=== PATIENT | male | born 1955 | race Hispanic/Latino ===

== ENCOUNTER 2017-09-03 09:53 | Emergency (ER) | payer BC ==
--- OUTSIDE RECORDS SUMMARY | 2017-09-03 09:55 | XMS REPORT | Clinical Summary ---
:1955 Author Organization [facility] Address [address] [place] [address] Care Team Providers Name Role Phone Lane Lopez DO Primary Care Provider Allergies No Known Allergies Current Medications Prescription Sig. Disp. Refills Start Date End Date Status allopurinol (ZYLOPRIM) 05/30/2015 Active 100 MG tablet atorvastatin (LIPITOR) 02/28/2005 Active 40 MG tablet glimepiride (AMARYL) 2 07/29/2005 Active MG tablet losartan (COZAAR) 25 02/29/2012 Active MG tablet metFORMIN (GLUCOPHAGE) 07/29/2005 Active 500 MG tablet meclizine (MOTION 02/28/2010 Active SICKNESS, MECLIZINE,) 25 mg tablet potassium citrate 05/30/2015 Active (UROCIT-K) 10 mEq (1,080 mg) CR tablet tamsulosin (FLOMAX) 02/28/2010 Active 0.4 mg capsule,extended release 24hr meloxicam (MOBIC) 15 Take 1 tablet 30 tablet 2 11/18/2015 11/17/2016 MG tablet (15 mg total) by mouth daily. Active Problems Problem Noted Date Shoulder pain, bilateral 11/18/2015 Glenohumeral arthritis 11/18/2015 Diabetes 02/28/2005 Vertigo 02/29/2000 Kidney stones 02/28/1999 Family History Medical History Relation Name Comments No Known Problems Brother Diabetes Father Jerson Meléndez Type 2 with insulin No Known Problems Mother No Known Problems Sister Relation Name Status Comments Brother Father Jerson Meléndez Mother Sister Social History Tobacco Use Types Packs/Day Years Used Date Former Smoker Cigarettes 1 10 02/28/1977 - 08/12/1988 Alcohol Use Drinks/Week oz/Week Comments No Sex Assigned at Date Recorded Not on file Last Filed Vital Signs Not on file Plan of Treatment Health Maintenance Due Date Last Done Comments DIABETIC FOOT EXAM 12/19/1967 DIABETIC RETINAL EYE EXAM 12/19/1967 URINE MICROALBUMIN 12/19/1967 COLON CANCER SCREENING 12/19/2007 SHINGRIX VACCINE (#1) 12/19/2007 INFLUENZA VACCINE 09/28/2017 Results Not on fileafter 09/02/2016 Insurance Payer Benefit Plan / Group Subscriber ID Type Phone Address BCBS BCBS CHOICE PPO/FEDERAL EMPL PPO xxxxxxxxxxxx PPO Home: Prem [address] [place] [phone] [place], [place] [id number]
--- OUTSIDE RECORDS SUMMARY | 2017-09-03 09:56 | XMS REPORT ---
:1955 [facility] Address [facility] [facility] [address] [place] [address] Care Team Providers Name Role Phone DELVIS MCCLAIN Unavailable Unavailable Problems This patient has no known problems. Allergies, Adverse Reactions, Alerts This patient has no known allergies or adverse reactions. Medications This patient has no known medications. Results Test Description Test Time Test Comments Text Results Atomic Results Result Comments TISSUE EXAM 2016-09-20 14:15:00 Surgical Pathology Report Case: [id number] Authorizing Provider: Delvis Mcclain MD Collected: 08/30/2016 1024 Ordering Location: [facility] Received: 08/30/2016 1219 SERVICES Pathologist: Jairon Pelletier MD Specimen: Humeral head, left shoulder BONE, LEFT SHOULDER, ARTHROPLASTY: -OSTEOARTHRITIS [id number] osteoarthritis left shoulder, subacromial impingement left shoulderLeft humeral headReceived fresh labeled "humeral head, left shoulder" is a 6.3 x 5.5 x 1.5 cm humeral head. The articular surface is irizarry-white to yellow-ellison and displays focal areas of pitting and eburnation. Also noted is osteophyte formation surrounding the periphery. No soft tissue is identified. Surface To Air Weapons Officer sections are submitted in cassettes A1-A2 for decalcification. DB/pl The sections who reduplication of the tidemark with eburnation and osteophyte formation. POCT-GLUCOSE METER 2016-09-01 07:51:00 Test Item Value Reference Range Comments POC-GLUCOSE METER (BEAKER) (test 287 mg/dL 70-110 TESTED AT [facility] [address] [facility] gmfi=6708) [facility] [address] POCT-GLUCOSE [id number] 21:22:00 Test Item Value Reference Range Comments POC-GLUCOSE METER (BEAKER) 284 mg/dL 70-110 TESTED AT [address] (test pbcf=8415) [facility] [address] POCT-GLUCOSE [id number] 18:19:00 Test Item Value Reference Range Comments POC-GLUCOSE METER (BEAKER) 281 mg/dL 70-110 TESTED AT [address] (test sivi=4463) [facility] [address] POCT-GLUCOSE [id number] 16:47:00 Test Item Value Reference Range Comments POC-GLUCOSE METER (BEAKER) 321 mg/dL 70-110 Procedure Error/TESTED AT [facility] (test fpet=2706) [address] [place] [address] POCT-GLUCOSE [id number] 11:11:00 Test Item Value Reference Range Comments POC-GLUCOSE METER (BEAKER) 282 mg/dL 70-110 TESTED AT [address] (test xkbm=1955) [facility] [address] POCT-GLUCOSE [id number] 09:55:00 Test Item Value Reference Range Comments POC-GLUCOSE METER (BEAKER) 326 mg/dL 70-110 TESTED AT [address] (test pjnj=5896) [facility] [address] POCT-GLUCOSE [id number] 08:15:00 Test Item Value Reference Range Comments POC-GLUCOSE METER (BEAKER) 309 mg/dL 70-110 Notified ERICKA BRUNO/TESTED AT [facility] (test cxtn=3079) [address] [place] [address] BASIC METABOLIC [id number] 04:57:00 Test Item Value Reference Range Comments SODIUM (BEAKER) (test 135 meq/L 136-145 godl=654) POTASSIUM (BEAKER) (test 4.1 meq/L 3.5-5.1 gnxb=706) CHLORIDE (BEAKER) (test 104 meq/L 98-107 ekmd=156) CO2 (BEAKER) (test 21 meq/L 22-29 vlhw=905) BLOOD UREA NITROGEN 8 mg/dL 7-21 (BEAKER) (test zhko=846) CREATININE (BEAKER) (test 0.74 mg/dL 0.57-1.25 kuam=036) GLUCOSE RANDOM (BEAKER) 267 mg/dL 70-105 (test zodt=969) CALCIUM (BEAKER) (test 8.8 mg/dL 8.4-10.2 bfam=149) EGFR (BEAKER) (test 109 mL/min/1.73 sq m ESTIMATED GFR IS NOT wqyy=0774) ACCURATE CREATININE CLEARANCE IN PREDICTING GLOMERULAR FILTRATION RATE. ESTIMATED GFR IS NOT APPLICABLE FOR DIALYSIS PATIENTS. HEMOGLOBIN AND [id number] 04:51:00 Test Item Value Reference Range Comments HEMOGLOBIN (BEAKER) (test iopl=910) 13.2 GM/DL 13.0-16.8 HEMATOCRIT (BEAKER) (test zarl=182) 39.8 % 40.0-50.0 POCT-GLUCOSE [id number] 21:08:00 Test Item Value Reference Range Comments POC-GLUCOSE METER (BEAKER) 297 mg/dL 70-110 TESTED AT [address] (test nwud=5102) [place] [address] POCT-GLUCOSE [id number] 18:10:00 Test Item Value Reference Range Comments POC-GLUCOSE METER (BEAKER) 268 mg/dL 70-110 TESTED AT [address] (test vxgd=9625) [place] [address] POCT-GLUCOSE [id number] 16:24:00 Test Item Value Reference Range Comments POC-GLUCOSE METER (BEAKER) 312 mg/dL 70-110 TESTED AT [address] (test xrvk=0068) [place] [address] HEMOGLOBIN AND [id number] 13:47:00 Test Item Value Reference Range Comments HEMOGLOBIN (BEAKER) (test eiev=806) 13.1 GM/DL 13.0-16.8 HEMATOCRIT (BEAKER) (test oqqb=533) 38.8 % 40.0-50.0 BASIC METABOLIC [id number] 13:44:00 Test Item Value Reference Range Comments SODIUM (BEAKER) (test 136 meq/L 136-145 itcp=527) POTASSIUM (BEAKER) (test 4.2 meq/L 3.5-5.1 aoym=422) CHLORIDE (BEAKER) (test 106 meq/L 98-107 lhlo=820) CO2 (BEAKER) (test 21 meq/L 22-29 wmoj=516) BLOOD UREA NITROGEN 11 mg/dL 7-21 (BEAKER) (test zgwl=599) CREATININE (BEAKER) (test 0.79 mg/dL 0.57-1.25 teaq=610) GLUCOSE RANDOM (BEAKER) 323 mg/dL 70-105 (test ramb=870) CALCIUM (BEAKER) (test 8.3 mg/dL 8.4-10.2 mbuq=572) EGFR (BEAKER) (test 101 mL/min/1.73 sq m ESTIMATED GFR IS NOT bszz=8182) ACCURATE CREATININE CLEARANCE IN PREDICTING GLOMERULAR FILTRATION RATE. ESTIMATED GFR IS NOT APPLICABLE FOR DIALYSIS PATIENTS. POCT-GLUCOSE [id number] 12:57:00 Test Item Value Reference Range Comments POC-GLUCOSE METER (BEAKER) 342 mg/dL 70-110 TESTED AT [facility] [address] [facility] (test emnb=8731) [place] [address] POCT-GLUCOSE [id number] 06:08:00 Test Item Value Reference Range Comments POC-GLUCOSE METER (BEAKER) 282 mg/dL 70-110 TESTED AT [address] (test rqzh=4584) [place] [address] [id number] 11:34:00 Test Item Value Reference Range Comments SODIUM (BEAKER) (test cect=803) 135 meq/L 136-145 POTASSIUM (BEAKER) (test 4.3 meq/L 3.5-5.1 Specimen slightly hemolyzed ekqf=053) CHLORIDE (BEAKER) (test 102 meq/L 98-107 cqvf=691) CO2 (BEAKER) (test zhxh=417) 24 meq/L 22-29 [id number] 11:34:00 Test Item Value Reference Range Comments GLUCOSE RANDOM (BEAKER) (test mdfw=458) 271 mg/dL 70-105 Effective 01/15/2014: Reference Range Change-Adult onlyNew: 70-105 Previous : 70-110BUN AND [id number] 11:34:00 Test Item Value Reference Range Comments BLOOD UREA NITROGEN 16 mg/dL 7-21 (BEAKER) (test nftx=831) CREATININE (BEAKER) (test 0.83 mg/dL 0.57-1.25 Specimen slightly qhkl=453) hemolyzed EGFR (BEAKER) (test 95 mL/min/1.73 sq m ESTIMATED GFR IS NOT omsh=4910) ACCURATE CREATININE CLEARANCE IN PREDICTING GLOMERULAR FILTRATION RATE. ESTIMATED GFR IS NOT APPLICABLE FOR DIALYSIS PATIENTS. [id number] 11:18:00 Test Item Value Reference Range Comments HEMOGLOBIN (BEAKER) (test ppcp=445) 14.4 GM/DL 13.0-16.8 PLATELET [id number] 11:18:00 Test Item Value Reference Range Comments PLATELET COUNT (BEAKER) (test axjp=305) 152 K/CU MM 150-430 TISSUE [id number] 09:02:00Surgical Pathology Report Case: [id number] Authorizing Provider: Delvis Mcclain MD Ordering Provider: Delvis Mclcain MD OrderingLocation: [facility] Collected: 06/01 1039 SERVICES Pathologist: Aldo Pugh MD Received: 06/01/2016 1202 Specimen: Humeralhead, right shoulder HUMORAL HEAD, RIGHT, ARTHROPLASTY: - DEGENERATIVE CHANGES CONSISTENT WITH OSTEOARTHRITIS Signing Pathologist Direct Phone Line: [phone], [phone] osteoarthritis right shoulder, right shoulder impingementRight humeral headReceived fresh labeled "humeral head , right shoulder" is a 6.5 x 5.0 x 1.5 cm humeral head. The articular surface is irizarry-white to yellow-ellison and displays focal areas of pitting and eburnation. Also noted is osteophyte formation surrounding the periphery. Surface To Air Weapons Officer sections are submitted in cassettes A1-A2 for decalcification. DB/ ewPerformed.BASIC METABOLIC [id number] 10:14:00 Test Item Value Reference Range Comments SODIUM (BEAKER) (test 135 meq/L 136-145 gtpg=883) POTASSIUM (BEAKER) (test 4.1 meq/L 3.5-5.1 qeru=048) CHLORIDE (BEAKER) (test 100 meq/L 98-107 yila=378) CO2 (BEAKER) (test 26 meq/L 22-29 qmnz=877) BLOOD UREA NITROGEN 10 mg/dL 7-21 (BEAKER) (test vmqw=320) CREATININE (BEAKER) 0.65 mg/dL 0.57-1.25 (test pxev=900) GLUCOSE RANDOM (BEAKER) 285 mg/dL 70-105 (test ohii=906) CALCIUM (BEAKER) (test 8.9 mg/dL 8.4-10.2 imky=385) EGFR (BEAKER) (test 126 mL/min/1.73 sq INSUFFICIENT CLINICAL DATA xtyx=6577) m TO CALCULATE ESTIMATED GFR. HEMOGLOBIN AND [id number] 10:02:00 Test Item Value Reference Range Comments HEMOGLOBIN (BEAKER) (test bkkq=957) 12.4 GM/DL 13.0-16.8 HEMATOCRIT (BEAKER) (test hmfa=625) 37.6 % 40.0-50.0 POCT-GLUCOSE [id number] 07:33:00 Test Item Value Reference Range Comments POC-GLUCOSE METER (BEAKER) 229 mg/dL 70-110 TESTED AT [address] (test soqp=3029) [facility] [address] POCT-GLUCOSE [id number] 21:09:00 Test Item Value Reference Range Comments POC-GLUCOSE METER (BEAKER) 258 mg/dL 70-110 TESTED AT [address] (test rxwc=5258) [place] [address] POCT-GLUCOSE [id number] 17:13:00 Test Item Value Reference Range Comments POC-GLUCOSE METER (BEAKER) 227 mg/dL 70-110 TESTED AT [address] (test rmxv=0211) [place] [address] POCT-GLUCOSE [id number] 12:10:00 Test Item Value Reference Range Comments POC-GLUCOSE METER (BEAKER) 251 mg/dL 70-110 TESTED AT [address] (test hbhl=0951) [facility] [address] POCT-GLUCOSE [id number] 07:15:00 Test Item Value Reference Range Comments POC-GLUCOSE METER (BEAKER) 237 mg/dL 70-110 TESTED AT [address] (test urbo=1261) [facility] [address] BASIC METABOLIC [id number] 04:59:00 Test Item Value Reference Range Comments SODIUM (BEAKER) (test 134 meq/L 136-145 zjlr=946) POTASSIUM (BEAKER) (test 4.2 meq/L 3.5-5.1 kxmk=726) CHLORIDE (BEAKER) (test 100 meq/L 98-107 zjln=020) CO2 (BEAKER) (test 24 meq/L 22-29 kprv=726) BLOOD UREA NITROGEN 9 mg/dL 7-21 (BEAKER) (test tjcc=671) CREATININE (BEAKER) 0.76 mg/dL 0.57-1.25 (test eowq=033) GLUCOSE RANDOM (BEAKER) 267 mg/dL 70-105 (test icdy=258) CALCIUM (BEAKER) (test 8.2 mg/dL 8.4-10.2 cyih=049) EGFR (BEAKER) (test 105 mL/min/1.73 sq INSUFFICIENT CLINICAL DATA sbpa=6647) m TO CALCULATE ESTIMATED GFR. HEMOGLOBIN AND [id number] 04:55:00 Test Item Value Reference Range Comments HEMOGLOBIN (BEAKER) (test gxqa=482) 12.6 GM/DL 13.0-16.8 HEMATOCRIT (BEAKER) (test sgdf=017) 38.1 % 40.0-50.0 POCT-GLUCOSE [id number] 22:22:00 Test Item Value Reference Range Comments POC-GLUCOSE METER (BEAKER) 305 mg/dL 70-110 Notified ERICKA BRUNO/TESTED AT [facility] (test fgoj=8139) [address] [place] [address] POCT-GLUCOSE [id number] 19:01:00 Test Item Value Reference Range Comments POC-GLUCOSE METER (BEAKER) 267 mg/dL 70-110 TESTED AT [address] (test zcvp=9523) [place] [address] POCT-GLUCOSE [id number] 14:52:00 Test Item Value Reference Range Comments POC-GLUCOSE METER (BEAKER) 285 mg/dL 70-110 TESTED AT [address] (test tvhi=7877) [place] [address] POCT-GLUCOSE [id number] 06:18:00 Test Item Value Reference Range Comments POC-GLUCOSE METER (BEAKER) 258 mg/dL 70-110 TESTED AT [address] (test flpx=4664) [place] [address] POCT-GLUCOSE [id number] 09:39:00 Test Item Value Reference Range Comments POC-GLUCOSE METER (BANDAR) 222 mg/dL 70-110 TESTED AT [facility] [address] (test fmyq=2635) [facility] [address]
--- OUTSIDE RECORDS SUMMARY | 2017-09-03 09:56 | XMS REPORT | Clinical Summary ---
:1955 Author Organization [facility] Address [address] [place] [address] Phone Care Team Providers Name Role Phone Unavailable Primary Care Provider Unavailable Allergies No Known Allergies Current Medications Prescription Sig. Disp. Refills Start Date End Date Status metFORMIN (GLUCOPHAGE) Take 1,000 mg by Active 500 MG tablet mouth 2 (two) times daily with breakfast and dinner . potassium citrate Take by mouth 3 Active (POTASSIUM CITRATE) 10 (three) times daily mEq (1,080 mg) SR tablet with meals. tamsulosin (FLOMAX) 0.4 Take 0.4 mg by mouth Active mg Cp24 24 hr capsule nightly. allopurinol (ZYLOPRIM) Take 300 mg by mouth Active 300 MG tablet 2 (two) times daily. atorvastatin (LIPITOR) Take 40 mg by mouth Active 40 MG tablet nightly. losartan (COZAAR) 25 MG Take 25 mg by mouth Active tablet nightly. meclizine (ANTIVERT) 25 Take 25 mg by mouth Active MG tablet 3 (three) times daily as needed. glimepiride (AMARYL) 2 Take 2 mg by mouth Active MG tablet every morning before breakfast. HYDROcodone-acetaminophe Take 1 tablet by Active n (NORCO 10-325) 10-325 mouth every 6 (six) mg per tablet hours as needed for Pain. Active Problems Problem Noted Date Osteoarthritis of left shoulder 08/30/2016 Localized osteoarthritis of right shoulder 06/01/2016 Status post total shoulder arthroplasty, right 06/01/2016 Osteoarthritis of right shoulder 05/26/2016 Encounters Date Type Specialty Care Team Description 09/02/2016 Telephone Anesthesiology Amie Delong RN after 09/02/2016 Social History Tobacco Use Types Packs/Day Years Used Date Never Smoker Alcohol Use Drinks/Week oz/Week Comments Yes occ Sex Assigned at Date Recorded Not on file Last Filed Vital Signs Not on file Plan of Treatment Not on file Implants Implanted Type Area Edi Architect Device Expiration Model / Identifier Date Serial / Lot Minna Edward 2 38in 0[address]5 [address] Ar-7200 - [id number] [place]/Art Right: ARTHREX AR-7200 / Implanted: Qty: 4 on 06/01/2016 by Keanu Hurtado MD hroscopy Shoulder / [id number] Cement Bone Harts Hv 40/20 - [id number] Cement/Yfn Right: BIOMET 2016 [id number] / Implanted: Qty: 1 on 06/01/2016 by Keanu Hurtado MD ler/Adhesi Shoulder / ve [id number] Cement Bone Harts Hv 40/20 - [id number] Cement/Yfn Left: BIOMET 2016 [id number] / Implanted: Qty: 1 on 08/30/2016 by Keanu Hurtado MD ler/Adhesi Shoulder / ve [id number] Stem Fracture/F Right: DEPUY 05/28/2022 1137-14-000 / Implanted: Qty: 1 on 06/01/2016 by Keanu Hurtado MD ixation Shoulder / [id number] Glenoid Fracture/F Right: DEPUY 11/28/2019 1136-44-026 / Implanted: Qty: 1 on 06/01/2016 by Keanu Hurtado MD ixation Shoulder / [id number] Head Fracture/F Right: DEPUY 09/27/2024 1126-56-110 / Implanted: Qty: 1 on 06/01/2016 by Keanu Hurtado MD ixation Shoulder / [id number] [employer]age [place] Standard Stem Sz12 145mm Joints Left: DEPUY 1137-12-050 / Implanted: Qty: 1 on 08/30/2016 by Keanu Hurtado MD Shoulder ORTHOPEDICS / [id number] [place] Peg Glenoid Premieron X-Linked Pe Sz52mm Joints Left: DEPUY 2020 1136-43-026 / Implanted: Qty: 1 on 08/30/2016 by Keanu Hurtado MD Shoulder ORTHOPEDICS / [id number] [employer]vantage Eccentric Head Sz [id number] Joints Left: DEPUY 2025 1128-52-120 / Implanted: Qty: 1 on 08/30/2016 by Keanu Hurtado MD Shoulder ORTHOPEDICS / [id number] Results Not on fileafter 09/02/2016
--- NOTE | 2017-09-03 10:40 | ER ---
Nurse's Notes [facility] Name: Boom Meléndez Age: 61 yrs Sex: Male : 1955 Arrival Date: 09/03/2017 Time: 09:57 Bed 14 Private MD: Lane Lopez H Diagnosis: Zoster [herpes zoster] Presentation: 09/03 10:03 Presenting complaint: Patient states: i thought my L flank pain was related to my hj kidney stone, i had CT yesterday and it was negative; 3 days ago, i noticed rash on the same area and its painful; reports fever;. Transition of care: patient was not received from another setting of care. Onset of symptoms was September 03, 2017. Risk Assessment: Do you want to hurt yourself or someone else? Patient reports no desire to harm self or others. Initial Sepsis Screen: Does the patient meet any 2 criteria? No. Patient's initial sepsis screen is negative. Does the patient have a suspected source of infection? No. Patient's initial sepsis screen is negative. Care prior to arrival: None. 10:03 Method Of Arrival: Ambulatory 10:03 Acuity: SAMANTHA 4 hj Triage Assessment: 10:09 General: Appears in no apparent distress. uncomfortable, Behavior is calm, cooperative, hj appropriate for age. Pain: Complains of pain in skin on L flank. Historical: - Allergies: 10:09 No Known Allergies; hj - Home Meds: 10:09 losartan oral oral [Active]; atorvastatin oral oral [Active]; Glimepiride Oral hj [Active]; Metformin Oral [Active]; Allopurinol Oral [Active]; Potassium Chloride Oral [Active]; Meclizine Oral [Active]; - PMHx: 10:09 Diabetes - NIDDM; High Cholesterol; Kidney stones; trigeminal neuralgia; hj - PSHx: 10:09 back surgery; Knee surgery; shoulder; hj - Immunization history:: Adult Immunizations up to date. - Social history:: Smoking status: Patient/guardian denies using tobacco, Patient/guardian denies using alcohol. - Ebola Screening: : Patient negative for fever greater than or equal to 101.5 degrees Fahrenheit, and additional compatible Ebola Virus Disease symptoms Patient denies exposure to infectious person Patient denies travel to an Ebola-affected area in the 21 days before illness onset. Screenin:10 Abuse screen: Denies threats or abuse. Denies injuries from another. Nutritional hj screening: No deficits noted. Tuberculosis screening: No symptoms or risk factors identified. Fall Risk None identified. Assessment: 10:11 Reassessment: sere triage for assessmentl. Vital Signs: 10:10 BP 146 / 75; Pulse 64; Resp 18; Temp 96.8(O); Pulse Ox 97% on R/A; Weight 135.62 kg; hj Height 5 ft. 8 in. (172.72 cm); Pain 10/10; 10:10 Body Mass Index 45.46 (135.62 kg, 172.72 cm) ED Course: 09:57 Patient arrived in ED. mr 09:57 Lane Lopez DO is Private Physician. mr 09:58 [facility]in Mitchell [facility] 09:58 William Villarreal MD is Attending Physician. [facility] 10:02 Ramiro Mitchell, RN is Primary Nurse. 10:05 Triage completed. hj 10:10 Arm band placed on right wrist. hj 10:10 Patient has correct armband on for positive identification. Bed in low position. Call hj light in reach. Side rails up X 1. Adult w/ patient. 10:39 Lane Lopez DO is Referral Physician. [facility] 10:50 No provider procedures requiring assistance completed. Patient did not have IV access hj during this emergency room visit. Administered Medications: 10:29 Drug: Valtrex 1000 mg Route: PO; hj 10:49 Follow up: Response: No adverse reaction Outcome: 10:39 Discharge ordered by . [facility] 10:50 Discharged to home ambulatory, with family. hj 10:50 Condition: stable 10:50 Discharge instructions given to patient, family, Instructed on discharge instructions, follow up and referral plans. medication usage, Demonstrated understanding of instructions, follow-up care, medications, Prescriptions given X 2. 10:50 Patient left the ED. Signatures: Sachin Mitchell PA PA Baylee Collins mr Ramiro Mitchell, RN RN hj
--- NOTE | 2017-09-03 10:40 | EDPHYS ---
Physician Documentation [facility] Name: Boom Meléndez Age: 61 yrs Sex: Male : 1955 Arrival Date: 09/03/2017 Time: 09:57 Bed 14 Private MD: Lane Lopez H ED Physician William Villarreal HPI: 09/03 10:31 This 61 yrs old Male presents to ER via Ambulatory with complaints of Rash. [facility] 10:31 The patient's rash thought to be caused by an unknown cause. The rash is located on the jmm posterior aspect of left lateral abdomen. Onset: The symptoms/episode began/occurred gradually, 2 day(s) ago. Associated signs and symptoms: Pertinent positives: Pain. This is a 61 year old male with a history of DM that presents to the ED with left flank pain beginning 2 days ago. The patient was evaluated by his domestic housekeeper yesterday with negative imaging. Patient states he noticed a rash today. Denies fever but states he has chills. . Historical: - Allergies: 10:09 No Known Allergies; hj - Home Meds: 10:09 losartan oral oral [Active]; atorvastatin oral oral [Active]; Glimepiride Oral hj [Active]; Metformin Oral [Active]; Allopurinol Oral [Active]; Potassium Chloride Oral [Active]; Meclizine Oral [Active]; - PMHx: 10:09 Diabetes - NIDDM; High Cholesterol; Kidney stones; trigeminal neuralgia; hj - PSHx: 10:09 back surgery; Knee surgery; shoulder; hj - Immunization history:: Adult Immunizations up to date. - Social history:: Smoking status: Patient/guardian denies using tobacco, Patient/guardian denies using alcohol. - Ebola Screening: : Patient negative for fever greater than or equal to 101.5 degrees Fahrenheit, and additional compatible Ebola Virus Disease symptoms Patient denies exposure to infectious person Patient denies travel to an Ebola-affected area in the 21 days before illness onset. ROS: 10:31 Cardiovascular: Negative for chest pain, palpitations, and edema, Respiratory: Negative jm for shortness of breath, cough, wheezing, and pleuritic chest pain. 10:31 Constitutional: Positive for chills, Negative for fever. 10:31 Abdomen/GI: Positive for flank pain. 10:31 Back: Positive for flank pain, on the left. 10:31 Skin: Positive for rash. 10:31 All other systems are negative. Exam: 10:31 Constitutional: This is a well developed, well nourished patient who is awake, alert, jmm and in no acute distress. Head/Face: atraumatic. Neck: Trachea midline, Supple Cardiovascular: Regular rate and rhythm. No edema appreciated Respiratory: Normal respirations, no respiratory distress appreciated 10:31 Back: ROM is normal. 10:31 Musculoskeletal/extremity: ROM: intact in all extremities. 10:31 Skin: vesicular lesions noted on an erythematous base noted ot the left lateral posterior abdomen. . 10:31 Neuro: Orientation: is normal, Mentation: is normal, Memory: is normal. 10:31 Psych: Behavior/mood is pleasant, cooperative. Vital Signs: 10:10 BP 146 / 75; Pulse 64; Resp 18; Temp 96.8(O); Pulse Ox 97% on R/A; Weight 135.62 kg; hj Height 5 ft. 8 in. (172.72 cm); Pain 10/10; 10:10 Body Mass Index 45.46 (135.62 kg, 172.72 cm) MDM: 10:28 Patient medically screened. [facility] 10:31 Data reviewed: vital signs, nurses notes. Counseling: I had a detailed discussion with [facility] the patient and/or guardian regarding: the historical points, exam findings, and any diagnostic results supporting the discharge/admit diagnosis, the need for outpatient follow up, to return to the emergency department if symptoms worsen or persist or if there are any questions or concerns that arise at home. ED course: Patient is alert and non toxic in appearance in the ED. Symptoms consistent with herpes zoster. Patient will be administered antiviral therapy and advised to follow up with PCP. Patient given return precautions. Understood and agrees with the plan of care. . Administered Medications: 10:29 Drug: Valtrex 1000 mg Route: PO; 10:49 Follow up: Response: No adverse reaction Disposition: 09/03/17 10:39 Discharged to Home. Impression: Zoster [herpes zoster]. - Condition is Stable. - Discharge Instructions: Shingles. - Prescriptions for Tylenol- Codeine #3 300-30 mg Oral Tablet - take 1 tablet by ORAL route every 6 hours As needed; 20 tablet. Valtrex 1 g Oral Tablet - take 1 tablet by ORAL route every 8 hours for 7 days; 21 tablet. - Medication Reconciliation Form, Thank You Letter, Antibiotic Education, Prescription Opioid Use form. - Follow up: Lane Lopez DO; When: 2 - 3 days; Reason: Continuance of care. Addendum: 09/11/2017 20:11 Co-signature as Attending Physician, William Villarreal MD I agree with the assessment and k dr plan of care. Signatures: William Villarreal MD MD [facility] Sachin Mitchell PA PA celestem Ramiro Mitchell RN RN hj Corrections: (The following items were deleted from the chart) 09/03 10:50 10:39 09/03/2017 10:39 Discharged to Home. Impression: Zoster [herpes zoster]. hj Condition is Stable. Forms are Medication Reconciliation Form, Thank You Letter, Antibiotic Education, Prescription Opioid Use. Follow up: Lane Lopez; When: 2 - 3 days; Reason: Continuance of care. kenneth
[2017-09-03] MEDS ORDERED: VALACYCLOVIR 500 MG TAB ONE (10:45)
[2017-09-03 10:54] VITALS: BP 146/75; TEMP 96.8; O2SAT 97
== END 2017-09-03 10:50 | disposition home or self-care (01) ==
LOC: ER 09:53
DX: B02.9 Zoster without complications (principal); E78.00 Pure hypercholesterolemia, unspecified; E11.9 Type 2 diabetes mellitus without complications
CPT/HCPCS: 99283

== ENCOUNTER 2019-02-08 18:22 | Emergency (ER) | payer BC ==
--- OUTSIDE RECORDS SUMMARY | 2019-02-08 18:24 | XMS REPORT ---
:1955 Author Organization [facility] Address [facility] [place] [address] [place] [address] Care Team Providers Name Role Phone DELVIS MCCLAIN Unavailable Unavailable Problems This patient has no known problems. Allergies, Adverse Reactions, Alerts This patient has no known allergies or adverse reactions. Medications This patient has no known medications. Results Test Description Test Time Test Comments Text Results Atomic Results Result Comments TISSUE EXAM 2016-09-20 14:15:00 Surgical Pathology Report Case: [id number] Authorizing Provider: Delvis Mcclain MD Collected: 08/30/2016 1024 Ordering Location: [facility] Received: 08/30/2016 1219 SERVICES Pathologist: Jairon Pelletier MD Specimen: Humeral head, left shoulder BONE, LEFT SHOULDER, ARTHROPLASTY: -OSTEOARTHRITIS [id number] osteoarthritis left shoulder, subacromial impingement left shoulderLeft humeral headReceived fresh labeled "humeral head, left shoulder" is a 6.3 x 5.5 x 1.5 cm humeral head. The articular surface is irizarry-white to yellow-ellison and displays focal areas of pitting and eburnation. Also noted is osteophyte formation surrounding the periphery. No soft tissue is identified. Property Controller sections are submitted in cassettes A1-A2 for decalcification. DB/pl The sections who reduplication of the tidemark with eburnation and osteophyte formation. POCT-GLUCOSE METER 2016-09-01 07:51:00 Test Item Value Reference Range Comments POC-GLUCOSE METER (BEAKER) (test 287 mg/dL 70-110 TESTED AT [facility] [address] [facility] wixa=3233) [facility] [address] POCT-GLUCOSE [id number] 21:22:00 Test Item Value Reference Range Comments POC-GLUCOSE METER (BEAKER) 284 mg/dL 70-110 TESTED AT [address] (test ixgk=1961) [facility] [address] POCT-GLUCOSE [id number] 18:19:00 Test Item Value Reference Range Comments POC-GLUCOSE METER (BEAKER) 281 mg/dL 70-110 TESTED AT [address] (test wnbl=8492) [facility] [address] POCT-GLUCOSE [id number] 16:47:00 Test Item Value Reference Range Comments POC-GLUCOSE METER (BEAKER) 321 mg/dL 70-110 Procedure Error/TESTED AT [facility] (test xhbe=5660) [address] [place] [address] POCT-GLUCOSE [id number] 11:11:00 Test Item Value Reference Range Comments POC-GLUCOSE METER (BEAKER) 282 mg/dL 70-110 TESTED AT [address] (test zvuz=5278) [facility] [address] POCT-GLUCOSE [id number] 09:55:00 Test Item Value Reference Range Comments POC-GLUCOSE METER (BEAKER) 326 mg/dL 70-110 TESTED AT [address] (test tcer=2164) [facility] [address] POCT-GLUCOSE [id number] 08:15:00 Test Item Value Reference Range Comments POC-GLUCOSE METER (BEAKER) 309 mg/dL 70-110 Notified ERICKA BRUNO/TESTED AT [facility] (test qehl=7729) [address] [place] [address] BASIC METABOLIC [id number] 04:57:00 Test Item Value Reference Range Comments SODIUM (BEAKER) (test 135 meq/L 136-145 bmll=448) POTASSIUM (BEAKER) (test 4.1 meq/L 3.5-5.1 fplk=456) CHLORIDE (BEAKER) (test 104 meq/L 98-107 rkhd=461) CO2 (BEAKER) (test 21 meq/L 22-29 nkbe=716) BLOOD UREA NITROGEN 8 mg/dL 7-21 (BEAKER) (test busy=553) CREATININE (BEAKER) (test 0.74 mg/dL 0.57-1.25 xwcj=326) GLUCOSE RANDOM (BEAKER) 267 mg/dL 70-105 (test shff=572) CALCIUM (BEAKER) (test 8.8 mg/dL 8.4-10.2 jsip=249) EGFR (BEAKER) (test 109 mL/min/1.73 sq m ESTIMATED GFR IS NOT lnob=7983) ACCURATE CREATININE CLEARANCE IN PREDICTING GLOMERULAR FILTRATION RATE. ESTIMATED GFR IS NOT APPLICABLE FOR DIALYSIS PATIENTS. HEMOGLOBIN AND [id number] 04:51:00 Test Item Value Reference Range Comments HEMOGLOBIN (BEAKER) (test xnci=831) 13.2 GM/DL 13.0-16.8 HEMATOCRIT (BEAKER) (test huir=189) 39.8 % 40.0-50.0 POCT-GLUCOSE [id number] 21:08:00 Test Item Value Reference Range Comments POC-GLUCOSE METER (BEAKER) 297 mg/dL 70-110 TESTED AT [address] (test lpid=2885) [place] [address] POCT-GLUCOSE [id number] 18:10:00 Test Item Value Reference Range Comments POC-GLUCOSE METER (BEAKER) 268 mg/dL 70-110 TESTED AT [address] (test ilfq=0274) [place] [id number] POCT-GLUCOSE [id number] 16:24:00 Test Item Value Reference Range Comments POC-GLUCOSE METER (BEAKER) 312 mg/dL 70-110 TESTED AT [address] (test erpe=1679) [place] [id number] HEMOGLOBIN AND [id number] 13:47:00 Test Item Value Reference Range Comments HEMOGLOBIN (BEAKER) (test fzcn=205) 13.1 GM/DL 13.0-16.8 HEMATOCRIT (BEAKER) (test xtfw=267) 38.8 % 40.0-50.0 BASIC METABOLIC [id number] 13:44:00 Test Item Value Reference Range Comments SODIUM (BEAKER) (test 136 meq/L 136-145 dwwr=468) POTASSIUM (BEAKER) (test 4.2 meq/L 3.5-5.1 vzrl=113) CHLORIDE (BEAKER) (test 106 meq/L 98-107 loyp=464) CO2 (BEAKER) (test 21 meq/L 22-29 ocka=738) BLOOD UREA NITROGEN 11 mg/dL 7-21 (BEAKER) (test bygg=949) CREATININE (BEAKER) (test 0.79 mg/dL 0.57-1.25 mfml=173) GLUCOSE RANDOM (BEAKER) 323 mg/dL 70-105 (test lvki=821) CALCIUM (BEAKER) (test 8.3 mg/dL 8.4-10.2 bgwm=022) EGFR (BEAKER) (test 101 mL/min/1.73 sq m ESTIMATED GFR IS NOT wmgx=6645) ACCURATE CREATININE CLEARANCE IN PREDICTING GLOMERULAR FILTRATION RATE. ESTIMATED GFR IS NOT APPLICABLE FOR DIALYSIS PATIENTS. POCT-GLUCOSE [id number] 12:57:00 Test Item Value Reference Range Comments POC-GLUCOSE METER (BEAKER) 342 mg/dL 70-110 TESTED AT [facility] [address] [facility] (test teou=0150) [place] [address] POCT-GLUCOSE [id number] 06:08:00 Test Item Value Reference Range Comments POC-GLUCOSE METER (BEAKER) 282 mg/dL 70-110 TESTED AT [address] (test zyfq=7650) [place] [address] [id number] 11:34:00 Test Item Value Reference Range Comments SODIUM (BEAKER) (test wcad=970) 135 meq/L 136-145 POTASSIUM (BEAKER) (test 4.3 meq/L 3.5-5.1 Specimen slightly hemolyzed qejn=161) CHLORIDE (BEAKER) (test 102 meq/L 98-107 bktv=906) CO2 (BEAKER) (test tvxh=060) 24 meq/L 22-29 [id number] 11:34:00 Test Item Value Reference Range Comments GLUCOSE RANDOM (BEAKER) (test jjgj=732) 271 mg/dL 70-105 Effective 01/15/2014: Reference Range Change-Adult onlyNew: 70-105 Previous : 70-110BUN AND [id number] 11:34:00 Test Item Value Reference Range Comments BLOOD UREA NITROGEN 16 mg/dL 7-21 (BEAKER) (test unvk=892) CREATININE (BEAKER) (test 0.83 mg/dL 0.57-1.25 Specimen slightly puft=506) hemolyzed EGFR (BEAKER) (test 95 mL/min/1.73 sq m ESTIMATED GFR IS NOT lvop=8521) ACCURATE CREATININE CLEARANCE IN PREDICTING GLOMERULAR FILTRATION RATE. ESTIMATED GFR IS NOT APPLICABLE FOR DIALYSIS PATIENTS. [id number] 11:18:00 Test Item Value Reference Range Comments HEMOGLOBIN (BEAKER) (test shkd=527) 14.4 GM/DL 13.0-16.8 PLATELET [id number] 11:18:00 Test Item Value Reference Range Comments PLATELET COUNT (BEAKER) (test klsc=376) 152 K/CU MM 150-430 TISSUE [id number] 09:02:00Surgical Pathology Report Case: [id number] Authorizing Provider: Delvis Mcclain MD Ordering Provider: Delvis Mcclain MD [facility]ingLocation: [facility] Collected: 06/01 1039 SERVICES Pathologist: Aldo Pugh MD Received: 06/01/2016 1202 Specimen: Humeralhead, right shoulder HUMORAL HEAD, RIGHT, ARTHROPLASTY: - DEGENERATIVE CHANGES CONSISTENT WITH OSTEOARTHRITIS Signing Pathologist Direct Phone Line: [phone], [phone] osteoarthritis right shoulder, right shoulder impingementRight humeral headReceived fresh labeled "humeral head , right shoulder" is a 6.5 x 5.0 x 1.5 cm humeral head. The articular surface is irizarry-white to yellow-ellison and displays focal areas of pitting and eburnation. Also noted is osteophyte formation surrounding the periphery. Property Controller sections are submitted in cassettes A1-A2 for decalcification. DB/ ewPerformed.BASIC METABOLIC [id number] 10:14:00 Test Item Value Reference Range Comments SODIUM (BEAKER) (test 135 meq/L 136-145 ifxz=470) POTASSIUM (BEAKER) (test 4.1 meq/L 3.5-5.1 grsp=040) CHLORIDE (BEAKER) (test 100 meq/L 98-107 aijc=277) CO2 (BEAKER) (test 26 meq/L 22-29 zexg=047) BLOOD UREA NITROGEN 10 mg/dL 7-21 (BEAKER) (test vffi=113) CREATININE (BEAKER) 0.65 mg/dL 0.57-1.25 (test zkvk=520) GLUCOSE RANDOM (BEAKER) 285 mg/dL 70-105 (test bydn=885) CALCIUM (BEAKER) (test 8.9 mg/dL 8.4-10.2 tagw=211) EGFR (BEAKER) (test 126 mL/min/1.73 sq INSUFFICIENT CLINICAL DATA gvty=4388) m TO CALCULATE ESTIMATED GFR. HEMOGLOBIN AND [id number] 10:02:00 Test Item Value Reference Range Comments HEMOGLOBIN (BEAKER) (test fdog=004) 12.4 GM/DL 13.0-16.8 HEMATOCRIT (BEAKER) (test zqcf=992) 37.6 % 40.0-50.0 POCT-GLUCOSE [id number] 07:33:00 Test Item Value Reference Range Comments POC-GLUCOSE METER (BEAKER) 229 mg/dL 70-110 TESTED AT [address] (test oncd=5904) [facility] [address] POCT-GLUCOSE [id number] 21:09:00 Test Item Value Reference Range Comments POC-GLUCOSE METER (BEAKER) 258 mg/dL 70-110 TESTED AT [address] (test wwga=0768) [place] [id number] POCT-GLUCOSE [id number] 17:13:00 Test Item Value Reference Range Comments POC-GLUCOSE METER (BEAKER) 227 mg/dL 70-110 TESTED AT [address] (test sswt=6220) [place] [id number] POCT-GLUCOSE [id number] 12:10:00 Test Item Value Reference Range Comments POC-GLUCOSE METER (BEAKER) 251 mg/dL 70-110 TESTED AT [address] (test tipp=6184) [facility] [address] POCT-GLUCOSE [id number] 07:15:00 Test Item Value Reference Range Comments POC-GLUCOSE METER (BEAKER) 237 mg/dL 70-110 TESTED AT [address] (test oyyj=8245) [facility] [address] BASIC METABOLIC [id number] 04:59:00 Test Item Value Reference Range Comments SODIUM (BEAKER) (test 134 meq/L 136-145 dmzv=429) POTASSIUM (BEAKER) (test 4.2 meq/L 3.5-5.1 spuv=031) CHLORIDE (BEAKER) (test 100 meq/L 98-107 yxzc=434) CO2 (BEAKER) (test 24 meq/L 22-29 qevy=701) BLOOD UREA NITROGEN 9 mg/dL 7-21 (BEAKER) (test mfmp=981) CREATININE (BEAKER) 0.76 mg/dL 0.57-1.25 (test vuiu=540) GLUCOSE RANDOM (BEAKER) 267 mg/dL 70-105 (test ovpc=683) CALCIUM (BEAKER) (test 8.2 mg/dL 8.4-10.2 jbos=080) EGFR (BEAKER) (test 105 mL/min/1.73 sq INSUFFICIENT CLINICAL DATA lrxl=9556) m TO CALCULATE ESTIMATED GFR. HEMOGLOBIN AND [id number] 04:55:00 Test Item Value Reference Range Comments HEMOGLOBIN (BEAKER) (test chsu=108) 12.6 GM/DL 13.0-16.8 HEMATOCRIT (BEAKER) (test zqoy=136) 38.1 % 40.0-50.0 POCT-GLUCOSE [id number] 22:22:00 Test Item Value Reference Range Comments POC-GLUCOSE METER (BEAKER) 305 mg/dL 70-110 Notified ERICKA BRUNO/TESTED AT [facility] (test akzy=5593) [address] [place] [address] POCT-GLUCOSE [id number] 19:01:00 Test Item Value Reference Range Comments POC-GLUCOSE METER (BEAKER) 267 mg/dL 70-110 TESTED AT [address] (test kmmg=2208) [place] [id number] POCT-GLUCOSE [id number] 14:52:00 Test Item Value Reference Range Comments POC-GLUCOSE METER (BEAKER) 285 mg/dL 70-110 TESTED AT [address] (test eota=3375) [place] [id number] POCT-GLUCOSE [id number] 06:18:00 Test Item Value Reference Range Comments POC-GLUCOSE METER (BEAKER) 258 mg/dL 70-110 TESTED AT [address] (test ztns=9439) [place] [id number] POCT-GLUCOSE [id number] 09:39:00 Test Item Value Reference Range Comments POC-GLUCOSE METER (BANDAR) 222 mg/dL 70-110 TESTED AT [facility] [address] (test yqcp=6238) [facility] [address]
[2019-02-08] MEDS ORDERED: LIDOCAINE 1% 20 ML MDV ONE (19:24)
--- NOTE | 2019-02-08 20:09 | EDPHYS ---
Physician Documentation [facility] Name: Boom Meléndez Age: 63 yrs Sex: Male : 1955 Arrival Date: 02/08/2019 Time: 18:25 Bed 16 Private MD: Lane Lopez H ED Physician William Villarreal HPI: 02/08 19:02 This 63 yrs old Male presents to ER via Ambulatory with complaints of Abscess. jmm 19:02 the patient presents with a swollen area of the back. Onset: The symptoms/episode jmm began/occurred gradually, 1 day(s) ago. Possible cause(s): unknown. Modifying factors: the symptoms are alleviated by nothing, the symptoms are aggravated by nothing. This is a 63 year old male with no chronic medical conditions that presents to the ED with complaints of back swelling. Denies fever or chills. . Historical: - Allergies: 18:31 No Known Drug Allergies; tw2 - Home Meds: 18:31 Metformin Oral [Active]; Allopurinol Oral [Active]; atorvastatin Oral [Active]; tw2 Glimepiride Oral [Active]; losartan Oral [Active]; Meclizine Oral [Active]; Potassium Chloride Oral [Active]; - PMHx: 18:31 Diabetes - NIDDM; High Cholesterol; Kidney stones; trigeminal neuralgia; tw2 - PSHx: 18:31 back surgery; Knee surgery; shoulder; tw2 - Immunization history:: Last tetanus immunization: < 5 years ago. - Social history:: Smoking status: . - Ebola Screening: : Patient denies exposure to infectious person. ROS: 19:02 Constitutional: Negative for fever, chills, and weight loss, Cardiovascular: Negative jmm for chest pain, palpitations, and edema, Respiratory: Negative for shortness of breath, cough, wheezing, and pleuritic chest pain. 19:02 Skin: Positive for cellulitis, hematoma. 19:02 All other systems are negative. Exam: 19:02 Constitutional: This is a well developed, well nourished patient who is awake, alert, jmm and in no acute distress. Head/Face: atraumatic. Eyes: EOMI, no conjunctival erythema appreciated ENT: Moist Mucus Membranes Neck: Trachea midline, Supple Chest/axilla: Normal chest wall appearance and motion. Cardiovascular: Regular rate and rhythm. No edema appreciated Respiratory: Normal respirations, no respiratory distress appreciated Abdomen/GI: Non distended, soft Back: Normal ROM 19:02 Skin: erythema, swelling, and induration noted to the upper back. 19:02 Neuro: Orientation: is normal, Mentation: is normal, Memory: is normal. 19:02 Psych: Behavior/mood is pleasant, cooperative. Vital Signs: 18:32 BP 137 / 66; Pulse 74; Resp 17; Temp 98.1(TE); Pulse Ox 97% on R/A; Weight 136.08 kg tw2 (R); Height 5 ft. 8 in. (172.72 cm) (R); Pain 4/10; 18:32 Body Mass Index 45.61 (136.08 kg, 172.72 cm) tw2 Procedures: 20:06 I \T\ D: Incision and drainage was performed for an abscess of the back Prepped with kenneth Betadine, Anesthetized with 5 ml's 1% Lidocaine. Incised with #11 blade. Drained moderate amount purulent fluid. Loculations removed. Abscess cavity explored. Packed with iodoform gauze, Dressing: sterile 4x4 gauze, the patient tolerated the procedure well. MDM: 19:02 Patient medically screened. [facility] 20:07 Data reviewed: vital signs, nurses notes. Counseling: I had a detailed discussion with kenneth the patient and/or guardian regarding: the historical points, exam findings, and any diagnostic results supporting the discharge/admit diagnosis, the need for outpatient follow up, to return to the emergency department if symptoms worsen or persist or if there are any questions or concerns that arise at home. ED course: Patient given wound infection return precautions. Patient understood and agrees with the plan of care. . 02/08 19:04 Order name: Incision \T\ Drainage Setup; Complete Time: 19:25 [facility] Administered Medications: 20:00 Drug: Lidocaine (1 %) 20 ml Volume: 20 ml; Route: Infiltration; jb4 Disposition: 02/09 06:42 Co-signature as Attending Physician, William Villarreal MD I agree with the assessment and kdr plan of care. Disposition: 02/08/19 20:08 Discharged to Home. Impression: Cutaneous abscess of back [any part, except buttock]. - Condition is Stable. - Discharge Instructions: Skin Abscess. - Prescriptions for Augmentin 875- 125 mg Oral Tablet - take 1 tablet by ORAL route every 12 hours for 10 days; 20 tablet. Bactrim DS 800- 160 mg Oral Tablet - take 1 tablet by ORAL route every 12 hours for 10 days; 20 tablet. - Medication Reconciliation Form, Thank You Letter, Antibiotic Education, Prescription Opioid Use form. - Follow up: Tom Gill MD; When: 2 - 3 days; Reason: Recheck today's complaints, Continuance of care, Re-evaluation by your physician. Signatures: William Villarreal MD MD kdr Sachin Mitchell PA PA jmm Courtney Hopson, RN RN tw2 Keanu James, RN RN jb4 Corrections: (The following items were deleted from the chart) 02/08 20:24 20:08 02/08/2019 20:08 Discharged to Home. Impression: Cutaneous abscess of back [any jb4 part, except buttock]. Condition is Stable. Forms are Medication Reconciliation Form, Thank You Letter, Antibiotic Education, Prescription Opioid Use. Follow up: Tom Gill; When: 2 - 3 days; Reason: Recheck today's complaints, Continuance of care, Re-evaluation by your physician. kenneth
--- NOTE | 2019-02-08 20:09 | ER ---
Nurse's Notes [facility] Name: Boom Meléndez Age: 63 yrs Sex: Male : 1955 Arrival Date: 02/08/2019 Time: 18:25 Bed 16 Private MD: Lane Lopez H Diagnosis: Cutaneous abscess of back [any part, except buttock] Presentation: 02/08 18:29 Presenting complaint: Patient states: i dont know if i got a spider bite or what but i tw2 am getting a lot of pressure in the middle of my back, my told me it was red and i better have it checked out. Transition of care: patient was not received from another setting of care. Onset of symptoms was February 08, 2019. Risk Assessment: Do you want to hurt yourself or someone else? Patient reports no desire to harm self or others. Initial Sepsis Screen: Does the patient meet any 2 criteria? No. Patient's initial sepsis screen is negative. Does the patient have a suspected source of infection? No. Patient's initial sepsis screen is negative. Care prior to arrival: None. 18:29 Method Of Arrival: Ambulatory tw2 18:29 Acuity: SAMANTHA 4 tw2 Triage Assessment: 18:32 General: Appears in no apparent distress. obese, Behavior is calm, cooperative, tw2 appropriate for age. Pain: Complains of pain in back. Derm: Reports increased pain. Historical: - Allergies: 18:31 No Known Drug Allergies; tw2 - Home Meds: 18:31 Metformin Oral [Active]; Allopurinol Oral [Active]; atorvastatin Oral [Active]; tw2 Glimepiride Oral [Active]; losartan Oral [Active]; Meclizine Oral [Active]; Potassium Chloride Oral [Active]; - PMHx: 18:31 Diabetes - NIDDM; High Cholesterol; Kidney stones; trigeminal neuralgia; tw2 - PSHx: 18:31 back surgery; Knee surgery; shoulder; tw2 - Immunization history:: Last tetanus immunization: < 5 years ago. - Social history:: Smoking status: . - Ebola Screening: : Patient denies exposure to infectious person. Screenin:34 Abuse screen: Denies threats or abuse. Denies injuries from another. Nutritional bp screening: No deficits noted. Tuberculosis screening: No symptoms or risk factors identified. Fall Risk None identified. Assessment: 18:33 General: SEE TRIAGE NOTE. bp 19:00 Reassessment: Patient appears in no apparent distress at this time. Patient and/or jb4 family updated on plan of care and expected duration. Pain level reassessed. Patient is alert, oriented x 3, equal unlabored respirations, skin warm/dry/pink. 20:00 Reassessment: Patient appears in no apparent distress at this time. Patient and/or jb4 family updated on plan of care and expected duration. Pain level reassessed. Patient is alert, oriented x 3, equal unlabored respirations, skin warm/dry/pink. Vital Signs: 18:32 BP 137 / 66; Pulse 74; Resp 17; Temp 98.1(TE); Pulse Ox 97% on R/A; Weight 136.08 kg tw2 (R); Height 5 ft. 8 in. (172.72 cm) (R); Pain 4/10; 18:32 Body Mass Index 45.61 (136.08 kg, 172.72 cm) tw2 ED Course: 18:25 Patient arrived in ED. mr 18:25 Lane Lopez DO is Private Physician. mr 18:30 Triage completed. tw2 18:30 Arm band placed on. tw2 18:33 Kit Young, RN is Primary Nurse. bp 18:34 Sachin Mitchell PA is PHCP. jmm 18:34 William Villarreal MD is Attending Physician. jmm 18:34 Patient has correct armband on for positive identification. Bed in low position. Call bp light in reach. Side rails up X2. Adult w/ patient. 20:00 No provider procedures requiring assistance completed. Patient did not have IV access jb4 during this emergency room visit. 20:07 Tom Gill MD is Referral Physician. kenneth Administered Medications: 20:00 Drug: Lidocaine (1 %) 20 ml Volume: 20 ml; Route: Infiltration; jb4 Outcome: 20:08 Discharge ordered by . kenneth 20:20 Discharged to home ambulatory, with family. jb4 20:20 Condition: stable 20:20 Discharge instructions given to patient, Instructed on discharge instructions, follow up and referral plans. medication usage, Demonstrated understanding of instructions, follow-up care, medications, Prescriptions given X 2. 20:24 Patient left the ED. jb4 Signatures: Sachin Mtichell PA PA [facility] Blaine Teetee mr Courtney Hopson, RN RN tw2 Keanu James, RN RN jb4 Kit Young, RN RN bp
[2019-02-08 20:29] VITALS: BP 137/66; TEMP 98.1; O2SAT 97
== END 2019-02-08 20:24 | disposition home or self-care (01) ==
LOC: ER 18:22
PROC: 0J970ZZ Drainage of Back Subcutaneous Tissue and Fascia, Open Approach (ICD-10-PCS; principal; 2019-02-08)
DX: L02.212 Cutaneous abscess of back [any part, except buttock and flank] (principal)
CPT/HCPCS: 99283